=== PATIENT | male | born 1990 | race Hispanic/Latino ===

== ENCOUNTER → 2023-06-06 16:17 | Outpatient (CLI) | payer OTHER, SELFPAY ==
--- NOTE | 2023-06-06 16:21 | DI.RAD.S_ITS ---
PROCEDURE: XR LUMBAR SPINE MIN 4V INDICATIONS: Treat and Eval TECHNIQUE: 5 views of the lumbar spine were acquired, including bilateral oblique views. COMPARISON: None. FINDINGS: Bones: 5 nonrib-bearing vertebrae are present. There is normal bony alignment. No vertebral body compression fractures. No suspicious bony lesions. Soft tissues: Overlying bowel gas pattern is normal. No suspicious soft tissue calcifications. Oblique images: No pars defects. IMPRESSION: No acute bony abnormality. Dictated by: Jose Everett M.D. on 06/06/2023 at 18:17 Approved by: Jose Everett M.D. on 06/06/2023 at 18:18
== END ==
LOC: RAD 16:20
PROVIDERS: PCP Family Medicine; Referring Provider Family Medicine; Visit Provider Family Medicine
DX: M54.50 Low back pain, unspecified (principal); G89.29 Other chronic pain
CPT/HCPCS: 72110

== ENCOUNTER → 2023-06-14 08:59 | Outpatient (CLI) | payer OTHER, SELFPAY ==
[2023-06-14 09:48] LABS: Add Manual Diff / Slide Review NO; Basophils Absolute Auto 0 /uL (0-100); Basophils Percent Auto 0.7 % (0-2); Eosinophils Absolute Auto 200 /uL (0-450); Eosinophils Percent Auto 4.9 % (2-4); Hematocrit 42.8 % (41-53); Hemoglobin 14.7 g/dL (13.5-17.5); Lymphocytes Absolute Auto 1700 /uL (1100-4500); Lymphocytes Percent Auto 44.1 % (25-40); Mean Corpuscular HGB Conc 34.4 % (30-36); Mean Corpuscular Hemoglobin 28.8 PG (26-34); Mean Corpuscular Volume 83.8 fL (80-100); Monocytes Absolute Auto 300 /uL (0-900); Neutrophils Absolute Auto 1700 /uL (1500-7000); Neutrophils Percent Auto 43.3 % (50-75); Platelet Count 332 X10^3/uL (150-400); Red Blood Cell Count 5.11 X10^6/uL (4.5-5.9); Red Cell Distribution Width 13.2 % (11.6-14.8)
[2023-06-14 10:08] LABS: Alanine Aminotransferase 13 IU/L (<50); Albumin 4.4 g/dL (3.5-5.0); Albumin Globulin Ratio 1.2 (1.0-2.8); Alkaline Phosphatase 47 U/L (38-126); Aspartate Aminotransferase 24 IU/L (17-59); BUN Creatinine Ratio 13.7 (6-22); Bilirubin Total 0.9 mg/dL (0.2-1.3); Blood Urea Nitrogen 13 mg/dL (9-20); Calcium 9.2 mg/dL (8.4-10.2); Carbon Dioxide 28 mmol/L (22-32); Chloride 103 mmol/L (98-107); Estimated Glomerular Filt Rate > 60 mL/min (>60); Globulin 3.7 g/dL (1.7-4.1); Glucose 82 mg/dL (70-100); HEMOLYSIS < 15 (0-50); Potassium 3.9 mmol/L (3.4-5.1); Sodium 137 mmol/L (137-145); Total Protein 8.1 g/dL (6.3-8.2)
[2023-06-16 16:21] LABS: Hepatitis B Surface Antigen NEGATIVE s/c (NEGATIVE)
[2023-06-16 16:33] LABS: HIV 1 & 2 Ab/Ag 4th Gen Combo NEGATIVE (NEGATIVE); Hep C Virus Ab w/Reflex Quant NEGATIVE s/c (NEGATIVE)
[2023-06-17 05:37] LABS: RPR Screen Non Reactive (Non Reactive)
== END ==
LOC: LAB 09:00
PROVIDERS: PCP Family Medicine; Referring Provider Family Medicine; Visit Provider Family Medicine
DX: Z13.9 Encounter for screening, unspecified (principal); Z11.59 Encounter for screening for other viral diseases; Z11.3 Encounter for screening for infections with a predominantly sexual mode of transmission; Z11.4 Encounter for screening for human immunodeficiency virus [HIV]
CPT/HCPCS: 36415; 80053; 85025; 86592; 86803; 87340; 87389

== ENCOUNTER → 2024-05-29 08:17 | Outpatient (CLI) | payer OTHER, SELFPAY ==
[2024-05-29 09:20] LABS: Hematocrit 43.9 % (41-53); Hemoglobin 15.1 g/dL (13.5-17.5); Mean Corpuscular HGB Conc 34.3 % (30-36); Mean Corpuscular Volume 84.5 fL (80-100); Platelet Count 371 X10^3/uL (150-400); Red Blood Cell Count 5.19 X10^6/uL (4.5-5.9); Red Cell Distribution Width 13.1 % (11.6-14.8); White Blood Cell Count 4.7 X10^3/uL (4.5-11.0)
[2024-05-29 09:50] LABS: HEMOLYSIS < 15 (0-50); Iron 173 ug/dL (49-181)
[2024-05-29 09:56] LABS: Alanine Aminotransferase 25 IU/L (<50); Albumin 4.7 g/dL (3.5-5.0); Albumin Globulin Ratio 1.4 (1.0-2.8); Alkaline Phosphatase 62 U/L (38-126); Aspartate Aminotransferase 30 IU/L (17-59); Bilirubin Total 0.6 mg/dL (0.2-1.3); Blood Urea Nitrogen 18 mg/dL (9-20); Calcium 9.4 mg/dL (8.4-10.2); Carbon Dioxide 27 mmol/L (22-32); Chloride 104 mmol/L (98-107); Cholesterol 240 mg/dL (140-199); Estimated Glomerular Filt Rate > 60 mL/min (>60); Globulin 3.3 g/dL (1.7-4.1); Glucose 95 mg/dL (70-100); HDL Cholesterol 44 mg/dL (40-60); HEMOLYSIS < 15 (0-50); LDL Cholesterol Calculated 119 mg/dL (<100); Potassium 4.5 mmol/L (3.4-5.1); Sodium 138 mmol/L (137-145); Triglycerides 386 mg/dL (35-150)
[2024-05-29 10:03] LABS: Percent Iron Saturation 53 % (20-50); Total Iron Binding Capacity 327 ug/dL (261-462); Transferrin 319 mg/dL (206-381)
[2024-05-29 10:23] LABS: TSH w/ Reflex to FT4 2.53 uIU/mL (0.47-4.68)
[2024-05-29 10:29] LABS: Ferritin 42 ng/mL (18-464)
[2024-05-29 10:54] LABS: Vitamin D 25 Hydroxy (D3) 30.1 ng/mL (30.0-100.0)
[2024-05-29 16:51] LABS: Hemoglobin A1C% w Est Avg Glu 5.2 % (4.0-6.0)
== END ==
PROVIDERS: PCP Family Medicine; Referring Provider Family Medicine; Visit Provider Family Medicine
DX: Z13.9 Encounter for screening, unspecified (principal); Z13.220 Encounter for screening for lipoid disorders; Z13.228 Encounter for screening for other metabolic disorders; Z13.29 Encounter for screening for other suspected endocrine disorder; R07.9 Chest pain, unspecified; Z13.0 Encounter for screening for diseases of the blood and blood-forming organs and certain disorders involving the immune mechanism; Z13.21 Encounter for screening for nutritional disorder; Z13.1 Encounter for screening for diabetes mellitus
CPT/HCPCS: 36415; 80053; 80061; 82306; 82728; 83036; 83540; 83550; 84443; 85027